=== PATIENT | male | born 1960 | race Caucasian/White ===

== ENCOUNTER 2025-06-21 09:08 | Outpatient (CLI) | payer MEDICARE, BC ==
[2025-06-21 11:10] LABS: Cardiac Risk 2.4 (Less than 4.5); Cholesterol 120.0 mg/dl (< 200 Desired); HDL Cholesterol 50.0 mg/dL (>60 Neg Risk); LDL Cholesterol, Calculated 54.0 mg/dL; Triglycerides 78.0 mg/dL (Less than 150)
== END 2025-06-21 09:09 | disposition home or self-care (01) ==
LOC: LABBT 09:08
PROVIDERS: ATTEND Student in an Organized Health Care Education/Training Program
DX: Z01.818 Encounter for other preprocedural examination (principal); M17.12 Unilateral primary osteoarthritis, left knee
CPT/HCPCS: 71046; 80061; 87081; 93005; 93010

== ENCOUNTER 2025-06-28 05:15 | Observation (INO) | payer MEDICARE, BC ==
[2025-06-21 10:44] LABS: #Basophils 0.07 10x3/uL (0.0-0.2); #Eosinophils 0.20 10x3/uL (0.0-0.7); #Monocytes 0.70 10x3/uL (0.11-0.59); #Neutrophils 3.93 10x3/uL (1.40-6.50); %Basophils 0.9 % (0.0-1.0); %Eosinophils 2.7 % (0.0-10.0); %Lymphocytes 33.6 % (21.0-51.0); %Monocytes 9.4 % (0.0-10.0); %Neutrophils 53.1 % (42.0-75.0); Hematocrit 45.6 % (42.0-52.0); Hemoglobin 14.8 g/dL (14.0-18.0); Mean Corpuscular Hemoglobin 27.4 pg (27.0-31.0); Mean Corpuscular Volume 84.4 fL (78.0-98.0); Platelet Count 177 10x3/uL (130-400); Red Blood Cell (RBC) Count 5.40 mill/uL (4.70-6.10); White Blood Cell (WBC) Count 7.41 10x3/uL (4.8-10.8)
[2025-06-21 11:01] LABS: INR-International Normal Ratio 1.0; Prothrombin Time 13.3 sec (12.0-14.7)
[2025-06-21 11:10] LABS: ALT (SGPT) 24 U/L (Less than 45); AST (SGOT) 24 U/L (11-34); Albumin 4.3 g/dL (3.1-4.5); Alkaline Phosphatase 50 U/L (40-110); Anion Gap 8 mmol/L (10-20); BUN (Urea Nitrogen) 15 mg/dL (8.4-25.7); Bilirubin, Total 0.4 mg/dL (0.3-1.2); Calc. Creatinine Clearance 0 mL/min (70-130); Calcium 9.4 mg/dL (7.8-10.44); Carbon Dioxide 24 mmol/L (23-31); Chloride 105 mmol/L (98-107); Globulin 2.8 g/dL (2.4-3.5); Glucose 168 mg/dL (80-115); Potassium 4.3 mmol/L (3.5-5.1); Sodium 133 mmol/L (136-145)
[2025-06-28] MEDS ORDERED: Gabapentin 300 MG CAP ONE (06:00)
[2025-06-28] MEDS ORDERED: Acetaminophen 500 MG TAB ONE (06:00)
[2025-06-28] MEDS ORDERED: CEFAZOLIN 2 GM VIAL ONE (06:01)
[2025-06-28] MEDS ORDERED: Tranexamic Acid 1,000 MG/10 ML VIAL ONE (06:01)
[2025-06-28] MEDS ORDERED: fentaNYL PF 100 MCG/2 ML SYRINGE ONE ×2 (06:18→09:39)
[2025-06-28] MEDS ORDERED: Lidocaine 1% PF 5 ML VIAL ONE (06:18)
[2025-06-28] MEDS ORDERED: PROPOFOL 20 ML ONE (06:18)
[2025-06-28] MEDS ORDERED: Vancomycin HCl 1.5 GM VIAL ONE (06:19)
[2025-06-28] MEDS ORDERED: Ondansetron PF 4 MG/2 ML Vial IVP PRN ×2 (07:30→10:06)
[2025-06-28] MEDS ORDERED: Ropivacaine 0.2% 550 ML 550 ML NERVE BLCK SCH (07:30)
[2025-06-28] MEDS ORDERED: PHENYLEPHRINE-NS 100 MCG/ML 10 ML SYRINGE ONE (08:37)
[2025-06-28] MEDS ORDERED: Ondansetron PF 4 MG/2 ML Vial ONE (09:30)
[2025-06-28] MEDS ORDERED: Ropivacaine 0.5% HCl/PF (150 MG/30 ML VIAL) ONE (09:35)
[2025-06-28] MEDS ORDERED: Ketorolac Tromethamine 30 MG (1 mL) VIAL ONE (09:40)
[2025-06-28] MEDS ORDERED: diphenhydrAMINE 25 MG CAP PO PRN (10:06)
[2025-06-28] MEDS ORDERED: HYDROmorphone 0.5 MG/0.5 ML SYRINGE ONE ×3 (10:13→12:33)
[2025-06-28] MEDS ORDERED: Dextrose 50% Abboject 50 ML SYRINGE SLOW IVP PRN (13:39)
[2025-06-28] MEDS ORDERED: Glucagon 1 MG/ML KIT IM PRN (13:39)
[2025-06-28] MEDS: Ketorolac Tromethamine 30 MG (1 mL) VIAL IVP SCH (14:02)
[2025-06-28] MEDS: Acetaminophen 500 MG TAB PO SCH (14:04)
[2025-06-28 14:07] VITALS: BMI 31.4
[2025-06-28] MEDS: Aspirin 81 mg Enteric Coated Tablet PO SCH (20:38)
[2025-06-28] MEDS: Ferrous Gluconate 324 MG TAB PO SCH (20:38)
[2025-06-28] MEDS: Senokot S 8.6-50 MG TAB PO SCH (20:38)
[2025-06-28] MEDS: Gabapentin 300 MG CAP PO SCH (20:38)
[2025-06-29 05:04] LABS: Hematocrit 33.0 % (42.0-52.0); Hemoglobin 10.7 g/dL (14.0-18.0); Mean Corpuscular Hemoglobin 27.3 pg (27.0-31.0); Mean Corpuscular Volume 84.2 fL (78.0-98.0); Platelet Count 137 10x3/uL (130-400); Red Blood Cell (RBC) Count 3.92 mill/uL (4.70-6.10); White Blood Cell (WBC) Count 8.18 10x3/uL (4.8-10.8)
[2025-06-29 05:28] LABS: Anion Gap 14 mmol/L (10-20); BUN (Urea Nitrogen) 12 mg/dL (8.4-25.7); Calc. Creatinine Clearance 110 mL/min (70-130); Calcium 8.1 mg/dL (7.8-10.44); Carbon Dioxide 26 mmol/L (23-31); Chloride 103 mmol/L (98-107); Glucose 190 mg/dL (80-115); Potassium 4.1 mmol/L (3.5-5.1); Sodium 139 mmol/L (136-145)
[2025-06-29] MEDS: oxyCODONE 5 MG TAB PO PRN ×2 (06:19→10:14)
[2025-06-29] MEDS: Multivitamin W/ Minerals 1 TAB PO SCH (10:15)
[2025-06-29 11:29] VITALS: BP 133/77; TEMP 98.4
[2025-06-30] MEDS ORDERED: PNEUMOC 20-VAL CONJ-DIP CRM/PF 0.5 ML SYRINGE IM ONE (09:00)
== END 2025-06-29 13:45 | disposition home or self-care (01) ==
LOC: SDC 05:15 → SURG A 13:31
PROVIDERS: ADMIT Student in an Organized Health Care Education/Training Program; ATTEND Student in an Organized Health Care Education/Training Program
PROC: 0SRD0JZ Replacement of Left Knee Joint with Synthetic Substitute, Open Approach (ICD-10-PCS; principal; 2025-06-28)
DX: M17.12 Unilateral primary osteoarthritis, left knee (principal); Z90.49 Acquired absence of other specified parts of digestive tract; Z95.1 Presence of aortocoronary bypass graft
CPT/HCPCS: 0055T; 27447; 64448; 36415; 36416; 80048; 80053; 83036; 85025; 85027; 85610; 86850; 86900; 86901; A4306; C1713; C1776; C1889; J0169; J0665; J1171; J1815; J1885; J2250; J2405; J2704; J2795; J3373